=== PATIENT | female | born 1990 | race African-American/Black ===

== ENCOUNTER 2020-08-14 20:35 | Emergency (ER) | payer OTHER ==
[~2020-08-14] VITALS: Ht 172.7 cm; Wt 47.6 kg
[~2020-08-14 20:35] MED LIST: ACETAMINOPHEN-120 ML PO; CIPROFLOXACIN500 M1 PO; DARVOCET-N 1001 EACH PO; DEPO-PROVERA; FLAGYL500 MG PO; IBUPROFEN 800800 M1 PO; PHENERGAN 25 MG25 M1 PO; TAMIFLU PO; VENTOLIN17 GM INH
[2020-08-14 21:30] LABS: URINE BILIRUBIN NEGATIVE (Negative); URINE BLOOD NEGATIVE (Negative); URINE CLARITY CLEAR; URINE COLOR YELLOW; URINE GLUCOSE-RANDOM* NEGATIVE (Negative); URINE KETONES TRACE (Negative); URINE LEUKOCYTES-REFLEX TRACE (Negative); URINE NITRITE-REFLEX NEGATIVE (Negative); URINE PROTEIN (DIPSTICK) 1+ (Negative); URINE SPECIFIC GRAVITY >= 1.030 (1.005-1.035)
[2020-08-14 21:41] LABS: CASTS None Seen /LPF (None Seen); MUCUS 4-6 Moderate strn/LPF (None Seen); SQUAMOUS 4-10 Moderate /LPF (0-3)
[2020-08-14 21:42] LABS: CRYSTALS None Seen /LPF (None Seen); URINE RBC None Seen /HPF (NONE SEEN); URINE WBC-REFLEX 6-15 Few /HPF (0-5)
[2020-08-14] MEDS ORDERED: DOXYCYCLINE 10100 MG PO (22:09)
[2020-08-14] MEDS ORDERED: FLAGYL500 M1 PO (22:11)
[2020-08-14 23:08] VITALS: BP 119/86
== END 2020-08-14 23:08 | disposition home or self-care (01) ==
LOC: ER 20:35
PROVIDERS: Nurse Practitioner
DX: N39.0 Urinary tract infection, site not specified (principal); Z20.2 Contact with and (suspected) exposure to infections with a predominantly sexual mode of transmission; F17.210 Nicotine dependence, cigarettes, uncomplicated; Z88.8 Allergy status to other drugs, medicaments and biological substances